=== PATIENT | female | born 1960 | race Caucasian/White ===

== ENCOUNTER 2018-05-30 06:13 | Day surgery (SDC) | payer BC, OTHER ==
[2018-05-29 15:00] VITALS: BMI 33.0
[2018-05-30] MEDS ORDERED: PROPOFOL 20 ML ONE ×2 (07:20→07:29)
[2018-05-30] MEDS ORDERED: MIDAZOLAM HCL 2 MG/2 ML SINGLE DOSE VIAL ONE ×3 (07:20→08:33)
[2018-05-30] MEDS ORDERED: SUCCINYLCHOLINE CHLORIDE 200 MG/10 ML VIAL ONE (07:20)
[2018-05-30] MEDS ORDERED: LIDOCAINE HCL/PF 2% SDV 5ML VIAL ONE (07:22)
[2018-05-30] MEDS ORDERED: ceFAZolin SODIUM 1 GM VIAL ONE (07:22)
[2018-05-30] MEDS ORDERED: SODIUM CHLORIDE 0.9% P/F 10 ML VIAL IJ ONE (07:22)
[2018-05-30] MEDS ORDERED: DEXAMETHASONE SOD PHOSPHATE 4 MG/1 ML VIAL ONE (07:22)
[2018-05-30] MEDS ORDERED: DEXAMETHASONE SOD PHOSPHATE/PF 10 MG/ML SDV ONE (07:37)
[2018-05-30] MEDS ORDERED: ROPIVACAINE HCL 0.5% 30ML VIAL ONE (07:37)
[2018-05-30] MEDS ORDERED: LIDOCAINE HCL 2% (20ML MULTI-DOSE VIAL) NR ONE (07:40)
[2018-05-30] MEDS ORDERED: ETOMIDATE 20 MG/10 ML AMPUL IVPUSH ONE (08:30)
[2018-05-30] MEDS ORDERED: KETAMINE HCL 200 MG/20 ML VIAL ONE (08:30)
[2018-05-30] MEDS ORDERED: ceFAZolin SODIUM 1 GM VIAL IVPB ONE (08:50)
[2018-05-30] MEDS ORDERED: PHENYLEPHRINE HCL 10 MG/1 ML SINGLE DOSE VIAL ONE (09:16)
--- NOTE | 2018-05-30 09:26 | HP ---
Satellite H - Chief Complaint Chief Complaint: right hand pain - Past Medical History Allergies/Adverse Reactions: Allergies Allergy/AdvReac Type Severity Reaction Status Date / Time aspirin Allergy Severe Swelling Verified 05/29/18 14:49 codeine Allergy Severe Hives Verified 05/29/18 14:49 hydrocodone Allergy Severe Hives Verified 05/29/18 14:52 latex Allergy Severe Difficulty Verified 05/29/18 14:48 Breathing oxycodone Allergy Severe Hives Verified 05/29/18 14:52 - Current Medications Current Medications: Home Medications Medication Instructions Recorded Albuterol Sulfate Inhaler - 2 inh PO PRN PRN 05/29/18 [Ventolin HFA Inhaler -] Budesonide/Formeterol Fumarate 1 inh PO BID 05/29/18 [SYMBICORT 160/4.5mcg -] Hydrochlorothiazide 25 mg PO DAILY 05/29/18 Ramipril 10 mg PO DAILY 05/29/18 Tramadol HCl 50 mg PO Q6H #30 tablet MDD 4 05/30/18 Satellite Physical Exam - Physical Examination Vital Signs: Vital Signs Period Temp Pulse Resp BP Sys/Zamora Pulse Ox Last 24 Hr 98.6 F 99 18 112/73 100 General Appearance: Well Nourished, Well Developed, Alert & Oriented x3 ENT: Clear Lung: Normal air movement Heart: Regular rate & rhythm Extremities: Other (right hand- + swelling, + ttp, decr rom, nvi xrays show grade 4 basal joint djd) Neurological: Intact, Alert, Oriented Satellite Impression/Plan - Impression/Plan Impression: right basal joint OA Operative Procedure: right basal joint arthroplasty, LRTI Date to be Performed: 05/30/18
--- NOTE | 2018-05-30 10:41 | OP ---
Operative Note - Note: Operative Date: 05/30/18 Pre-Operative Diagnosis: right Basal Joint Arthritis Operation: right basal joint arthroplasty, trapeziectomy, LRTI ligament reconstruction, harvest of FCR tendon Post-Operative Diagnosis: Same as Pre-op Surgeon: Jorge Delatorre Telescope Repairer: Hank Celaya Anesthesiologist/RUBBISH COLLECTOR: Juan Manuel Pritchard Anesthesia: Local, MAC Specimens Removed: trapezium bone Estimated Blood Loss (mls): 10 Drains, Volume Out (mls): 0 Blood Volume Replaced (mls): 0 Fluid Volume Replaced (mls): 1,000 Operative Report Dictated: Yes
[2018-05-30] MEDS ORDERED: ACETAMINOPHEN INJECTION 100 ML IVPB ONE (11:04)
[2018-05-30] MEDS ORDERED: ACETAMINOPHEN 1000 MG/100 ML VIAL (NON FORMULARY) IVPB ONE (11:15)
[2018-05-30] MEDS ORDERED: ONDANSETRON 4 MG/2 ML VIAL IVPUSH PRN (11:58)
[2018-05-30] MEDS ORDERED: LACTATED RINGERS SOLUTION 1,000 ML IV SCH (12:00)
[2018-05-30 12:30] VITALS: TEMP 97.8
--- NOTE | 2018-05-30 12:32 | SPEC ---
DATE OF OPERATION: 05/30/2018 PREOPERATIVE DIAGNOSIS: Right basal joint arthritis. POSTOPERATIVE DIAGNOSIS: Right basal joint arthritis. PROCEDURE: Right basal joint arthroplasty, trapeziectomy, flexor carpi radialis tendon harvest, and ligament reconstruction and tendon interposition. SURGEON: Jorge Delatorre MD YOUTH CARE WORKER: Hank Celaya MD ANESTHESIA: Juan Manuel Pritchard CRNA, right interscalene block with sedation. DRAINS: None. COMPLICATIONS: None. SPECIMENS: Trapezium, right wrist. ESTIMATED BLOOD LOSS: 10 mL. BLOOD GIVEN: None. FLUID REPLACEMENT: 1000 mL. INDICATIONS: This patient is a 58-year-old female with a preoperative diagnosis of severe, recurrent right basal joint osteoarthritis pain and dysfunction. After understanding the potential risks, complications, alternatives, benefits to surgery versus nonsurgical treatment, the patient elected to undergo this procedure. We did extensive preoperative discussions including the fact she may have temporary or permanent paresthesias. She will have 2 K-wire implants extending out of the hand, which will be removed in the office in 6 weeks. This is an often times 12-week commitment to immobilization and physical therapy. She understands it may not be perfect. She understands these and other potential risks and complications were discussed. DESCRIPTION OF PROCEDURE: The patient was brought to the operating room, peripheral IV placed, IV sedation given, 600 mg of Clindamycin given. MAC anesthesia was induced. A tourniquet was applied to the right upper arm. The entire case was done under 3.0 loupe magnification. The right upper extremity was prepped and draped in sterile fashion. Four incisions were marked out, one over the volar crease at the base of the thumb for the trigger thumb release, one for a lazy S incision directly over the thumb carpometacarpal joint and two small stab incisions over the volar radial forearm for harvesting of the FCR tendon. A total of 15 mL 0.5%, 1% Lidocaine mix was injected in and around all the surgical areas. The right upper extremity was then elevated, exsanguinated with an Esmarch bandage, tourniquet inflated to 250 mm of Mercury. The case was begun by using a No. 15 scalpel blade to make the lazy S incision directly over the thumb, carpometacarpal joint. Subcutaneous hemostasis was achieved with a bipolar cautery. Dissection done with a curved Iris scissors down to the dorsal thumb extensors. These were split longitudinally with a fresh No. 15 scalpel blade, dissection done exposing the patients thumb metacarpal and the thumb MC joint. A Weitlaner retractor was placed into the wound. Great care was taken to avoid all crossing neurovascular structures. The capsule was incised longitudinally with a No. 15 scalpel blade and a small synovectomy performed. This exposed the trapezial metacarpal joint. A No. 15 scalpel was utilized to do a subperiosteal dissection around the trapezium and a 0.062 K-wire was placed into the trapezium as a marylou stick and a radiographic marker and the x-ray brought in documenting across the trapezium (not the scaphoid). Then using the marylou stick, No. 15 scalpel blade a 1/4-inch osteotome and aniur I removed the trapezium in its entirety and passed off the field as specimen. The area was copiously irrigated and washed out. This exposed the FCR insertion. Next, I harvest the FCR tendon in the standard fashion. I made two small transverse stab incisions over the forearm with a fresh No. 15 scalpel blade and subcutaneous hemostasis achieved with a bipolar cautery. Dissection down with a Littler scissors freeing up the FCR tendon. I confirmed the FCR tendon by pulling on it and then I used a fresh No. 15 scalpel blade to cut over a mosquito forceps, brought it up to the middle wound and then brought it out through the distal wound. The proximal volar formed stab wounds were irrigated, washed out, closed with 4-0 undyed Vicryl in the deep dermal layer and a running subcuticular 4-0 Biosyn suture. They were then covered with Steri-Strips. Next, I used an oval bur to bur through a tunnel based at the thumb and carpal and the FCR tendon was passed through this tunnel at the base of the thumb metacarpal, then brought underneath the thumb metacarpal as a sling and tied to itself at its insertion point with 2-0 Vicryl suture. I then used the remaining portion of the FCR graft and rolled into an and sutured it with 2-0 Vicryl to the capsule circumferentially, keeping it in the trapezial space. I then used two 0.62 K-wires and pinned the thumb metacarpal to the index metacarpal as an insurance policy, maintaining the trapezial space. I then closed the capsule and the extensor tendons over the anchovy. I used 4-0 undyed Vicryl to close the deep dermal layer and finally skin re-approximation was done with a running subcuticular 4-0 Biosyn. The area was then washed and dried, covered with 4 x 4 gauze. The K-wire was bent, cut and a pin cap applied. Xeroform was applied to its base. I then did a trigger thumb release in the standard fashion. I made volar incisions and subcutaneous hemostasis achieved with a bipolar cautery. Longitudinal dissection over the curved iris scissors, I exposed the A1 sujatha sheath. Subcutaneous retractors were placed into the wound. Under direct visualization I did a trigger A1 sujatha sheath release, checked it both distally and proximally with the Littler scissors which seemed to be complete. The FPL tendon brought out through the wound with Ragnell retractor. There were no points of compression. The area was irrigated and washed out and skin closed with horizontal mattress 4-0 nylon sutures. The area was covered with Xeroform. The entire area was covered with sterile 4 x 4s, fluffs between the fingers, Webril and a 5-inch Orthoglass thumb spica splint was applied, wrapped with Negrita and Coban. The tourniquet was taken down after a total tourniquet time of 75 minutes. There were no complications during the case. The patient tolerated the procedure quite well and was brought to the ambulatory recovery room in stable condition. Sendy [id number]
[2018-05-30 14:52] VITALS: BP 141/84; PULSE 90
--- NOTE | 2018-05-31 16:52 | PATH ---
Surgical Pathology Report Patient Name: KAILA RUELAS [facility]. Rec. #: [id number] /Age/Gender: 1960 (Age: 58) / F Account: [id number] Location: [facility] SURGICAL Taken: 05/30/2018 Received: 05/30/2018 Reported: 05/31/2018 Physicians: Sendy Chavarria M.D. Specimen(s) Received TRAPEZIUM BONES Clinical History Arthritis Final Diagnosis BONE, TRAPEZIUM, RIGHT, BASAL JOINT ARTHROPLASTY: FRAGMENTS OF BONE WITH DEGENERATIVE CHANGES, SYNOVIUM, AND FIBROADIPOSE TISSUE. Electronically Signed Laisha Maldonado M.D. Gross Description Received in formalin labeled "trapezium bone" are multiple irregular white veliz bony fragments and fibrocartilaginous tissue measuring 2.5 x 2.5 x 1 cm in aggregate. Helicopter Utility Aircrewman sections are submitted after brief decalcification. FRANCESCA/05/30/2018 kaz/05/30/2018
== END 2018-05-30 14:52 | disposition home or self-care (01) ==
LOC: JASU-SURG 06:13
PROVIDERS: ATTEND Orthopaedic Surgery
PROC: 0LN70ZZ Release Right Hand Tendon, Open Approach (ICD-10-PCS; 2018-05-30)
PROC: 0RU Upper Joints, Supplement (ICD-10-PCS; principal; 2018-05-30 08:00)
DX: M19.041 Primary osteoarthritis, right hand (principal); M65.311 Trigger thumb, right thumb
CPT/HCPCS: 76000-TC-FY; 88304-TC; 88311-TC; 94760; J0131

== ENCOUNTER 2020-11-18 06:04 | Inpatient (IN) | payer BC, OTHER ==
[2020-11-13 13:29] VITALS: BMI 31.1
[2020-11-18] MEDS ORDERED: VANCOMYCIN 1,000 MG VIAL (RESTRICTED TO ID ONLY) ONE (07:03)
[2020-11-18] MEDS ORDERED: BUPIVACAINE LIPOSOME/PF (EXPAREL) 266 MG/20 ML VIAL ONE (07:33)
[2020-11-18] MEDS ORDERED: MIDAZOLAM HCL 2 MG/2 ML SINGLE DOSE VIAL ONE ×2 (07:33→08:13)
[2020-11-18] MEDS ORDERED: SODIUM CHLORIDE 0.9% P/F 10 ML VIAL IJ ONE (07:33)
[2020-11-18] MEDS ORDERED: SUCCINYLCHOLINE CHLORIDE 200 MG/10 ML SYRINGE ONE (08:13)
[2020-11-18] MEDS ORDERED: ROCURONIUM BROMIDE 50 MG/5 ML SYRINGE ONE (08:13)
[2020-11-18] MEDS ORDERED: DEXAMETHASONE SOD PHOSPHATE 4 MG/1 ML VIAL ONE ×2 (08:13→10:23)
[2020-11-18] MEDS ORDERED: ONDANSETRON 4 MG/2 ML VIAL ONE ×2 (08:13→10:23)
[2020-11-18] MEDS ORDERED: EPHEDRINE SULFATE/0.9% NACL/PF 50 MG/10 ML SYRINGE NR ONE (08:13)
[2020-11-18] MEDS ORDERED: KETAMINE HCL 200 MG/20 ML VIAL ONE (08:14)
[2020-11-18] MEDS ORDERED: ceFAZolin SODIUM 1 GM VIAL ONE ×2 (08:15→10:52)
[2020-11-18] MEDS ORDERED: fentaNYL CITRATE 250 MCG/5 ML VIAL ONE (08:15)
[2020-11-18] MEDS ORDERED: ALBUTEROL SO4 HFA INHALER IH ONE (08:15)
[2020-11-18] MEDS ORDERED: TRANEXAMIC ACID 1000 MG/10 ML VIAL ONE ×2 (08:15→10:23)
[2020-11-18] MEDS ORDERED: KETOROLAC TROMETHAMINE 30 MG/1 ML VIAL ONE (10:23)
[2020-11-18] MEDS ORDERED: BENZOIN/ALOE VERA/STORAX/TOLU 58 ML BOTTLE ONE (10:33)
[2020-11-18] MEDS ORDERED: ESMOLOL HCL 100,000 MCG/10 ML VIAL ONE (11:35)
[2020-11-18] MEDS ORDERED: BUDESONIDE/FORMETEROL FUMARATE 160/4.5 mcg INHALER IH PRN (11:49)
[2020-11-18] MEDS ORDERED: ALBUTEROL SO4 HFA INHALER IH PRN (11:49)
[2020-11-18] MEDS ORDERED: ONDANSETRON 4 MG/2 ML VIAL IVPUSH PRN (11:50)
[2020-11-18] MEDS ORDERED: MAG HYDROX/AL HYDROX/SIMETH 30 ML UNIT-DOSE CUP PO PRN (11:50)
[2020-11-18] MEDS ORDERED: MAGNESIUM HYDROX 2400MG/30ML ORAL SUSPENSION 30 ML CUP PO PRN (11:50)
[2020-11-18] MEDS ORDERED: CELECOXIB 200 MG CAPSULE PO ONE (11:50)
[2020-11-18] MEDS ORDERED: LACTATED RINGERS SOLUTION 1,000 ML IV SCH (12:00)
[2020-11-18] MEDS: HYDROmorphone HCL/PF 1 MG/ML VIAL ONE ×2 (12:15→12:30)
[2020-11-18] MEDS ORDERED: HYDROmorphone HCL 2 MG TABLET PO PRN ×2 (12:41)
[2020-11-18] MEDS ORDERED: HYDROmorphone HCL CARPU-JECT 2 MG/1 ML DISP.SYRIN IVPUSH PRN (12:49)
[2020-11-18] MEDS ORDERED: ACETAMINOPHEN 1000 MG/100 ML VIAL (NON FORMULARY) IVPB ONE (13:00)
[2020-11-18] MEDS ORDERED: HYDROmorphone HCL/PF 1 MG/ML VIAL ONE (13:01)
[2020-11-18] MEDS ORDERED: ACETAMINOPHEN 1000 MG/100 ML VIAL (NON FORMULARY) IVPB PRN (14:09)
[2020-11-18] MEDS: traMADol HCL 50 MG TABLET PO PRN ×2 (16:37→21:04)
[2020-11-18] MEDS: CEFAZOLIN 2 GM/D5W 2 GM/50 ML ML IVPB SCH ×2 (16:39→23:36)
[2020-11-18] MEDS ORDERED: ACETAMINOPHEN 325 MG TABLET (FP) PO SCH (21:00)
[2020-11-18] MEDS: MIRTAZAPINE 15 MG TABLET (FP) PO SCH (21:03)
[2020-11-18] MEDS: SENNOSIDES/DOCUSATE COMBO (SENNA PLUS) TABLET (UD) PO SCH ×2 (21:04→21:13)
[2020-11-18] MEDS ORDERED: CELECOXIB 200 MG CAPSULE PO SCH (22:00)
[2020-11-18] MEDS ORDERED: ASPIRIN 325 MG TABLET PO SCH (22:00)
[2020-11-18] MEDS ORDERED: PATIENT'S OWN MEDICATION (NON-FORMULARY) (Eszopiclone [Lunesta] 3 MG Tablet) PO SCH (22:00)
[2020-11-19] MEDS: traMADol HCL 50 MG TABLET PO PRN ×5 (00:27→21:47)
[2020-11-19] MEDS ORDERED: diphenhydrAMINE HCL 25 MG CAPSULE (FP) PO ONE (01:48)
[2020-11-19] MEDS ORDERED: LOCK ITEM NR ONE (02:11)
[2020-11-19] MEDS ORDERED: KETOROLAC TROMETHAMINE 10 MG TABLET PO SCH (06:00)
[2020-11-19] MEDS: CEFAZOLIN 2 GM/D5W 2 GM/50 ML ML IVPB SCH (06:11)
[2020-11-19 08:17] LABS: HEMATOCRIT 32.8 % (32.4-45.2); HEMOGLOBIN 10.5 GM/dl (10.7-15.3); MCH 26.3 pg (25.7-33.7); MEAN CELL VOLUME 82.4 fl (80-96); MEAN PLT VOLUME 9.4 fl (7.5-11.1); PLATELET COUNT 168 K/MM3 (134-434); RBC 3.98 M/mm3 (3.60-5.2); RDW 14.1 % (11.6-15.6); WHITE BLOOD COUNT 7.7 K/mm3 (4.0-10.8)
[2020-11-19 08:29] LABS: CALCIUM 8.4 mg/dl (8.5-10); CREATININE 0.8 mg/dl (0.55-1.3); POTASSIUM 3.8 mmol/L (3.5-5.1)
[2020-11-19] MEDS: SENNOSIDES/DOCUSATE COMBO (SENNA PLUS) TABLET (UD) PO SCH ×2 (09:41→21:49)
[2020-11-19] MEDS: RAMIPRIL 5 MG CAPSULE PO SCH (09:41)
[2020-11-19] MEDS: PANTOPRAZOLE 40 MG TABLET PO SCH (09:42)
[2020-11-19] MEDS: APIXABAN 2.5 MG TABLET PO SCH ×2 (09:42→21:47)
[2020-11-19] MEDS ORDERED: POTASSIUM CHLORIDE TABS 10 MEQ TABLET.ER (FP) PO SCH (10:00)
[2020-11-19] MEDS ORDERED: PATIENT'S OWN MEDICATION (NON-FORMULARY) (Potassium Chloride [Potassium Chloride] 10 MEQ C PO SCH (10:00)
[2020-11-19] MEDS ORDERED: HYDROCHLOROTHIAZIDE 25 MG TABLET (FP) PO SCH (10:00)
[2020-11-19] MEDS ORDERED: PT OWN MED DRAWER 7, Y5N ONE (14:01)
[2020-11-19] MEDS: MIRTAZAPINE 15 MG TABLET (FP) PO SCH (21:47)
[2020-11-20] MEDS: traMADol HCL 50 MG TABLET PO PRN ×2 (04:17→09:38)
[2020-11-20 06:43] VITALS: TEMP 98.2
[2020-11-20 08:10] LABS: HEMATOCRIT 30.5 % (32.4-45.2); HEMOGLOBIN 9.8 GM/dl (10.7-15.3); MCH 26.6 pg (25.7-33.7); MCHC 32.3 g/dl (32.0-36.0); MEAN CELL VOLUME 82.3 fl (80-96); MEAN PLT VOLUME 9.3 fl (7.5-11.1); PLATELET COUNT 160 K/MM3 (134-434); RDW 14.4 % (11.6-15.6); WHITE BLOOD COUNT 6.7 K/mm3 (4.0-10.8)
[2020-11-20] MEDS: PANTOPRAZOLE 40 MG TABLET PO SCH (09:36)
[2020-11-20] MEDS: RAMIPRIL 5 MG CAPSULE PO SCH (09:37)
[2020-11-20] MEDS: SENNOSIDES/DOCUSATE COMBO (SENNA PLUS) TABLET (UD) PO SCH (09:37)
[2020-11-20] MEDS: APIXABAN 2.5 MG TABLET PO SCH (09:37)
[2020-11-20 10:31] VITALS: BP 136/55; PULSE 100
== END 2020-11-20 12:14 | disposition home or self-care (01) | DRG 470 ==
LOC: FASUSAT 06:04 → FASU 06:04 → FM/S 13:35 → FASUSAT 11-19 13:25 → FM/S 11-19 13:26
PROVIDERS: ADMIT Internal Medicine; ATTEND Orthopaedic Surgery Orthopaedic Surgery of the Spine
PROC: 0SRD0J9 Replacement of Left Knee Joint with Synthetic Substitute, Cemented, Open Approach (ICD-10-PCS; principal; 2020-11-18 09:22)
DX: M17.12 Unilateral primary osteoarthritis, left knee (principal); I10 Essential (primary) hypertension; J45.909 Unspecified asthma, uncomplicated; Z86.718 Personal history of other venous thrombosis and embolism
CPT/HCPCS: 36415; 73560-TC-LT-FY; 80048; 85027; 88304-TC; 88311-TC; 94760; 97010-GP; 97116-GP; 97162-GP; J0131

== ENCOUNTER 2021-05-12 08:29 | Day surgery (SDC) | payer BC ==
[2021-05-04 15:50] VITALS: BMI 27.9
[2021-05-12] MEDS ORDERED: BUDESONIDE/FORMETEROL FUMARATE 160/4.5 mcg INHALER IH SCH (10:00)
[2021-05-12] MEDS ORDERED: MIDAZOLAM HCL 2 MG/2 ML SINGLE DOSE VIAL ONE ×2 (11:02→13:12)
[2021-05-12] MEDS ORDERED: BUPIVACAINE LIPOSOME/PF (EXPAREL) 266 MG/20 ML VIAL ONE (11:02)
[2021-05-12] MEDS ORDERED: BUPIVACAINE HCL/PF 0.5% (5MG/ML) 10 ML VIAL ONE (11:02)
[2021-05-12] MEDS ORDERED: SODIUM CHLORIDE 0.9% P/F 10 ML VIAL IJ ONE (11:03)
[2021-05-12] MEDS ORDERED: ROCURONIUM BROMIDE 50 MG/5 ML SYRINGE ONE (13:13)
[2021-05-12] MEDS ORDERED: PROPOFOL 20 ML ONE (13:13)
[2021-05-12] MEDS ORDERED: ceFAZolin SODIUM 1 GM VIAL ONE ×2 (13:59→14:03)
[2021-05-12] MEDS ORDERED: VANCOMYCIN 1,000 MG VIAL (RESTRICTED TO ID ONLY) ONE (13:59)
[2021-05-12] MEDS ORDERED: BENZOIN 118 ML SPRAY.PUMP TP ONE (15:13)
[2021-05-12] MEDS ORDERED: NEOSTIGMINE METHYLSULFATE 0.5 MG/ML - 10 ML MDV ONE (15:33)
[2021-05-12] MEDS ORDERED: TRANEXAMIC ACID 1000 MG/10 ML VIAL ONE (15:38)
[2021-05-12] MEDS ORDERED: HYDROmorphone HCL/PF 1 MG/ML VIAL ONE ×2 (15:49→16:22)
[2021-05-12] MEDS ORDERED: ALBUTEROL SO4 HFA INHALER IH PRN (16:03)
[2021-05-12] MEDS ORDERED: MAG HYDROX/AL HYDROX/SIMETH 30 ML UNIT-DOSE CUP PO PRN (16:04)
[2021-05-12] MEDS ORDERED: MAGNESIUM HYDROX 2400MG/30ML ORAL SUSPENSION 30 ML CUP PO PRN (16:04)
[2021-05-12] MEDS ORDERED: ONDANSETRON 4 MG/2 ML VIAL IVPUSH PRN ×2 (16:04→16:18)
[2021-05-12] MEDS: HYDROmorphone HCl 2 MG/ML VIAL IVPUSH ONE ×2 (16:05→16:11)
[2021-05-12] MEDS ORDERED: LACTATED RINGERS SOLUTION 1,000 ML IV SCH (16:15)
[2021-05-12] MEDS ORDERED: ACETAMINOPHEN INJECTION 100 ML IVPB ONE (16:15)
[2021-05-12] MEDS ORDERED: ACETAMINOPHEN 1000 MG/100 ML VIAL (NON FORMULARY) IVPB ONE (16:20)
[2021-05-12] MEDS ORDERED: oxyCODONE HCL 5 MG TABLET PO PRN (16:20)
[2021-05-12] MEDS ORDERED: diazePAM CARPU-JECT 10 MG/2 ML DISP.SYRIN ONE (16:24)
[2021-05-12] MEDS ORDERED: KETOROLAC TROMETHAMINE 30 MG/1 ML VIAL IVPUSH ONE (16:24)
[2021-05-12] MEDS: LACTATED RINGERS SOLUTION 1,000 ML IV SCH (17:50)
[2021-05-12] MEDS: oxyCODONE HCL 5 MG TABLET PO PRN ×2 (18:02→21:18)
[2021-05-12] MEDS ORDERED: ENOXAPARIN NA (PORCINE) 30 MG/0.3 ML DISP.SYRIN SQ SCH ×2 (19:30→20:00)
[2021-05-12] MEDS: CEFAZOLIN 2 GM/D5W 2 GM/50 ML ML IVPB SCH (20:24)
[2021-05-12] MEDS: MIRTAZAPINE 15 MG TABLET (FP) PO SCH (21:17)
[2021-05-12] MEDS: SENNOSIDES/DOCUSATE COMBO (SENNA PLUS) TABLET (UD) PO SCH (21:19)
[2021-05-12] MEDS ORDERED: CELECOXIB 200 MG CAPSULE PO SCH (22:00)
[2021-05-12] MEDS ORDERED: ASPIRIN 325 MG TABLET PO SCH (22:00)
[2021-05-12] MEDS: oxyCODONE HCL 10 MG SUSTAINED ACTING TABLET PO SCH (22:58)
[2021-05-12] MEDS: ACETAMINOPHEN 500 MG TABLET (FP) PO SCH (22:58)
[2021-05-12] MEDS: ZOLPIDEM TARTRATE 5 MG TABLET PO PRN (23:19)
[2021-05-13] MEDS ORDERED: CELECOXIB 100 MG CAPSULE PO ONE (00:30)
[2021-05-13] MEDS: CEFAZOLIN 2 GM/D5W 2 GM/50 ML ML IVPB SCH ×2 (02:06→08:28)
[2021-05-13] MEDS: ACETAMINOPHEN 500 MG TABLET (FP) PO SCH ×2 (05:22→10:12)
[2021-05-13 07:44] LABS: HEMATOCRIT 31.4 % (32.4-45.2); HEMOGLOBIN 10.1 GM/dl (10.7-15.3); MCH 25.2 pg (25.7-33.7); MCHC 32.2 g/dl (32.0-36.0); MEAN CELL VOLUME 78.1 fl (80-96); MEAN PLT VOLUME 8.5 fl (7.5-11.1); PLATELET COUNT 292 10^3/uL (134-434); RBC 4.02 M/mm3 (3.60-5.2); RDW 18.5 % (11.6-15.6); WHITE BLOOD COUNT 7.1 K/mm3 (4.0-10.8)
[2021-05-13 07:47] LABS: CALCIUM 8.6 mg/dl (8.5-10); CREATININE 0.6 mg/dl (0.55-1.3)
[2021-05-13] MEDS: ENOXAPARIN NA (PORCINE) 30 MG/0.3 ML DISP.SYRIN SQ SCH ×2 (08:27→20:33)
[2021-05-13] MEDS ORDERED: PT OWN MED DRAWER 7, Y5N ONE (09:14)
[2021-05-13] MEDS: BUDESONIDE/FORMETEROL FUMARATE 160/4.5 mcg INHALER IH SCH ×2 (09:29→21:28)
[2021-05-13] MEDS: PANTOPRAZOLE 40 MG TABLET PO SCH (09:30)
[2021-05-13] MEDS: POTASSIUM CHLORIDE TABS 10 MEQ TABLET.ER (FP) PO SCH (09:30)
[2021-05-13] MEDS: CELECOXIB 200 MG CAPSULE PO SCH ×2 (09:30→21:28)
[2021-05-13] MEDS: SENNOSIDES/DOCUSATE COMBO (SENNA PLUS) TABLET (UD) PO SCH ×2 (09:30→21:28)
[2021-05-13] MEDS: RAMIPRIL 5 MG CAPSULE PO SCH (09:30)
[2021-05-13] MEDS: HYDROCHLOROTHIAZIDE 25 MG TABLET (FP) PO SCH (09:31)
[2021-05-13] MEDS: oxyCODONE HCL 10 MG SUSTAINED ACTING TABLET PO SCH (09:31)
[2021-05-13] MEDS: traMADol HCL 50 MG TABLET PO PRN ×3 (12:51→21:29)
[2021-05-13] MEDS: LACTATED RINGERS SOLUTION 1,000 ML IV SCH (17:10)
[2021-05-13] MEDS: ACETAMINOPHEN 1000 MG/100 ML VIAL (NON FORMULARY) IVPB SCH ×2 (17:11→23:41)
[2021-05-13] MEDS: MIRTAZAPINE 15 MG TABLET (FP) PO SCH (21:29)
[2021-05-13] MEDS: ZOLPIDEM TARTRATE 5 MG TABLET PO PRN (21:31)
[2021-05-14] MEDS: ACETAMINOPHEN 1000 MG/100 ML VIAL (NON FORMULARY) IVPB SCH ×2 (06:50→13:23)
[2021-05-14] MEDS: traMADol HCL 50 MG TABLET PO PRN ×2 (06:51→13:24)
[2021-05-14] MEDS: ENOXAPARIN NA (PORCINE) 30 MG/0.3 ML DISP.SYRIN SQ SCH (08:19)
[2021-05-14 08:30] LABS: HEMATOCRIT 27.4 % (32.4-45.2); HEMOGLOBIN 9.2 GM/dl (10.7-15.3); MCH 26.3 pg (25.7-33.7); MCHC 33.5 g/dl (32.0-36.0); MEAN CELL VOLUME 78.6 fl (80-96); MEAN PLT VOLUME 8.8 fl (7.5-11.1); PLATELET COUNT 246 10^3/uL (134-434); RBC 3.48 M/mm3 (3.60-5.2); RDW 18.7 % (11.6-15.6); WHITE BLOOD COUNT 5.6 K/mm3 (4.0-10.8)
[2021-05-14] MEDS: RAMIPRIL 5 MG CAPSULE PO SCH (09:33)
[2021-05-14] MEDS: CELECOXIB 200 MG CAPSULE PO SCH (09:33)
[2021-05-14] MEDS: HYDROCHLOROTHIAZIDE 25 MG TABLET (FP) PO SCH (09:33)
[2021-05-14] MEDS: PANTOPRAZOLE 40 MG TABLET PO SCH (09:33)
[2021-05-14] MEDS: POTASSIUM CHLORIDE TABS 10 MEQ TABLET.ER (FP) PO SCH (09:34)
[2021-05-14] MEDS: SENNOSIDES/DOCUSATE COMBO (SENNA PLUS) TABLET (UD) PO SCH (09:34)
[2021-05-14] MEDS: BUDESONIDE/FORMETEROL FUMARATE 160/4.5 mcg INHALER IH SCH (09:37)
[2021-05-14 14:10] VITALS: BP 111/50; PULSE 93; TEMP 98.7
== END 2021-05-14 15:04 | disposition home or self-care (01) ==
LOC: FASUSAT 08:29 → FM/S 17:37 → FASUSAT 05-14 15:04
PROVIDERS: ATTEND Orthopaedic Surgery Orthopaedic Surgery of the Spine
PROC: 0SRC0J9 Replacement of Right Knee Joint with Synthetic Substitute, Cemented, Open Approach (ICD-10-PCS; principal; 2021-05-12 14:13)
DX: M17.11 Unilateral primary osteoarthritis, right knee (principal)
CPT/HCPCS: 36415; 73560-TC-RT-FY; 80048; 85027; 94760; 97010-GP; 97116-GP; 97163-GP; J0131